=== PATIENT | female | born 1945 ===

== ENCOUNTER 2017-06-19 10:30 | Emergency (ER) | payer MEDICARE, OTHER ==
[2017-06-19 10:43] VITALS: RESP 18
--- NOTE | 2017-06-19 11:53 | C.PDOC ---
History Of Present Illness 71 year old female with PMHx of HTN and DM presents to the ED for evaluation of B/L shoulder pain, left more then right. Patient reports she has been feeling pain to her left shoulder since December but in the past months it has worsened. Patient reports she is unable to move her arm due to pain and that pain worsens with movement. Patient reports she has been taking Advil for pain relief. Patient's PMD is Dr. Andrew, she reports she had an appointment today but because of her pain she decided to come to the ED. Patient denies headache, neck pain, neck stiffness, trauma, injury, fall, weakness, numbness. Time Seen by Provider: 06/19/17 11:15 Chief Complaint (Nursing): Upper Extremity Problem/Injury History Per: Patient History/Exam Limitations: no limitations Onset/Duration Of Symptoms: Days Current Symptoms Are (Timing): Still Present Quality: "Pain" Exacerbating Factor(s): Movement Recent travel outside of the [place]: No Additional History Per: Patient Past Medical History Reviewed: Historical Data, Nursing Documentation, Vital Signs Vital Signs: Last Vital Signs Temp 97.8 F 06/19/17 12:22 Pulse 59 L 06/19/17 12:22 Resp 18 06/19/17 12:22 BP 117/76 06/19/17 12:22 Pulse Ox 98 06/19/17 12:22 - Medical History PMH: Diabetes, HTN Surgical History: No Surg Hx - [facility] Procedures CLOSURE SKIN & SUBCUTANEOUS NEC (11/16/04) Family History: States: Unknown Family Hx - Social History Hx Alcohol Use: No Hx Substance Use: No - Immunization History Hx Tetanus Toxoid Vaccination: No Hx Influenza Vaccination: No Hx Pneumococcal Vaccination: No Review Of Systems Constitutional: Negative for: Fever, Chills Cardiovascular: Negative for: Chest Pain Respiratory: Negative for: Shortness of Breath Musculoskeletal: Positive for: Shoulder Pain, Arm Pain Skin: Negative for: Rash Neurological: Negative for: Weakness, Numbness, Headache, Dizziness Physical Exam - Physical Exam Appears: Non-toxic, No Acute Distress Skin: Normal Color, Warm, Dry Head: Atraumatic, Normacephalic Eye(s): bilateral: Normal Inspection Neck: Normal ROM, No Midline Cervical Tenderness, Supple Chest: Symmetrical Cardiovascular: Rhythm Regular, No Murmur Respiratory: Normal Breath Sounds, No Rales, No Rhonchi, No Wheezing Extremity: No Normal ROM (Left shoulder unable to abduct up to shoulder height. Normal at elbow and wrist. Normal right shoulder, wrist, elbow), Tenderness ( left shoulder over joint), Capillary Refill (< 2 seconds), No Swelling Pulses: Left Radial: Normal, Right Radial: Normal Neurological/Psych: Oriented x3, Normal Motor, Normal Sensation Gait: Steady ED Course And Treatment ECG: Interpreted By Me ECG Interpretation: Normal Interpretation Of ECG: nsr with sinus arrhythmia Rate From EC O2 Sat by Pulse Oximetry: 99 (ON RA) Pulse Ox Interpretation: Normal - Other Rad shoulder left X-Ray: Read By Radiologist Interpretation: IMPRESSION: Mild degenerative osteoarthrosis in the acromioclavicular joint. No acute fracture or dislocation. Medical Decision Making Medical Decision Making: Impression: B/L shoulder pain Plan: * EKG * Tylenol 975 mg PO * Left shoulder X-Ray Patient was advised to follow up with her PMD DR. Andrew and also follow up with an orthopedist for evaluation of her symptoms. Disposition Counseled Patient/Family Regarding: Studies Performed, Diagnosis, Need For Followup, Rx Given - Disposition Referrals: Justice Titus MD [Staff Provider] - Disposition: HOME/ ROUTINE Disposition Time: 13:18 Condition: GOOD Additional Instructions: Por favor, tome diclofenac o Advil, no juntos. Tambin puede alberto Tylenol entre dosis de otros. Aplique compresas fras en el hombro jesus varias veces al da sobre un dorene de cocina o un trapo ligero. Intenta route returner el hombro jesus suavemente. Kalyan un seguimiento con rodriguez mdico de atencin primaria y con el Dr. Titus, ortopedista. Please take either diclofenac or Advil, not together. You may also take Tylenol in between doses of other. Apply cold compresses to left shoulder several times per day over a dish towel or light cloth. Try to move left shoulder gently. Follow up with your primary care doctor and with Dr Titus, orthopedist. 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 - Scribe Statement The provider has reviewed the documentation as recorded by the Scribe James Orellana All medical record entries made by the Maryibe were at my direction and personally dictated by me. I have reviewed the chart and agree that the record accurately reflects my personal performance of the history, physical exam, medical decision making, and the department course for this patient. I have also personally directed, reviewed, and agree with the discharge instructions and disposition.
--- NOTE | 2017-06-19 12:09 | RAD ---
PROCEDURE: Radiographs of the Left Shoulder HISTORY: Joint pain COMPARISON: No prior. FINDINGS: BONES: Bone alignment and mineralization are normal. No acute fracture. JOINTS: There is mild degenerative osteoarthrosis in the acromioclavicular joint with subarticular irregularity and mild reduced joint space. The glenohumeral joint is normal. SOFT TISSUES: Normal. OTHER FINDINGS: None. IMPRESSION: Mild degenerative osteoarthrosis in the acromioclavicular joint. No acute fracture or dislocation.
[2017-06-19 12:23] VITALS: BP 117/76; PULSE 59; TEMP 97.8
[2017-06-19 13:17] VITALS: O2SAT 99
--- NOTE | 2017-06-20 17:10 | CARD ---
APPROVED REPORT EKG Measurement Heart [id number] [id number] <Conclusion> Normal sinus rhythm with sinus arrhythmia Normal ECG
== END 2017-06-19 13:35 | disposition home or self-care (01) ==
LOC: C.ER 10:30
DX: M25.512 Pain in left shoulder (principal)